=== PATIENT | female | born 1980 | race Caucasian/White ===

== ENCOUNTER 2019-12-06 14:37 | Outpatient (REF) | payer OTHER, SELFPAY ==
--- NOTE | 2019-12-06 15:20 | MHC.AU.P13 ---
Hearing Instrument Follow-Up- Binaural Date of Visit: 12/06/19 Follow-Up Summary: Patient was previously fit with a right-sided Phonak Audeo M50-13T on 04/14/2019 to address moderate to profound sensorineural hearing loss in her right ear. At the time, word discrimination was 84%. She was doing well with the hearing aid, until her hearing changed. Recently, patient began to experience increased hearing difficulty in her right ear and was not receiving any benefit from her hearing aid. She followed up with ENT, Dr. Del Cid, on 11/14/2019. She was found to have no remaining measurable thresholds and no word discrimination ability in the right ear. Her current hearing aid will no longer work for her right ear. She will require a CROS system, and received medical clearance from ENT, Dr. Del Cid. Her current hearing aid is also not compatible with a CROS product; therefore, she will need a new pair of instruments. An authorization will be sent to patient's insurance. If approved, a right-sided Phonak CROS B-312 and a left-sided Phonak Audeo B50-312 in color Sand Beige with size 1S receivers and domes. Recommendations: Recommendations: Hearing aid fitting will be scheduled pending approval from insurance and arrival of materials. Diagnosis Code(s): Primary Diagnosis: H90.A21 SNHL, Unilateral Right Ear, W/Restricted Contralateral Hearing Secondary Diagnosis: N/A Services Performed: Hearing Aid Evaluation and Earmold: Hearing Aid Evaluation- Binaural Signature: Provider: Ino Prado, [facility]
== END 2019-12-06 14:38 | disposition home or self-care (01) ==
LOC: HO.HAP 14:37
PROVIDERS: Visit Provider Internal Medicine
DX: Z46.1 Encounter for fitting and adjustment of hearing aid (principal)
CPT/HCPCS: 92591

== ENCOUNTER 2019-12-28 13:53 | Outpatient (REF) | payer OTHER, SELFPAY | END 2019-12-28 13:54 | disposition home or self-care (01) | LOC: HO.HMGCLDS 13:53 | PROVIDERS: PCP Internal Medicine; Visit Provider Internal Medicine | DX: Z20.828 Contact with and (suspected) exposure to other viral communicable diseases (principal) | CPT/HCPCS: C9803; U0003 ==

== ENCOUNTER 2020-02-01 13:26 | Outpatient (REF) | payer OTHER, SELFPAY | END 2020-02-01 13:27 | disposition home or self-care (01) | LOC: HO.HMGCLDS 13:26 | PROVIDERS: PCP Internal Medicine; Visit Provider Internal Medicine | DX: Z20.828 Contact with and (suspected) exposure to other viral communicable diseases (principal) | CPT/HCPCS: C9803; U0003 ==

== ENCOUNTER 2020-05-15 09:01 | Outpatient (REF) | payer OTHER, SELFPAY ==
--- NOTE | 2020-05-15 10:56 | MHC.AU.HFA ---
Hearing Instrument Fitting- Adult- Binaural Date of Visit: 05/15/20 Hearing Instruments Dispensed: Right Ear: Dust Puller: [employer] Model: CROS B-312 Serial Number: [id number] Repair Warranty: 07/29/2023 Loss and Damage Warranty: 07/29/2023 Battery Size: 312 Color: Sand Beige Weave Room Supervisor: 0xS Type of Dome: Small Open Left Ear: Dust Puller: Phonak Model: Audeo B50-312 Serial Number: [id number] RepairWarranty: 07/29/2023 Loss and Damage Warranty: 07/29/2023 Battery Size: 312 Color: Sand Beige Weave Room Supervisor: 0xS Type of Dome: Small Open Type of Wax Guard: CeruStop Summary of Fitting: Feedback infrastructure project manager run. Target set at 100%. CROS balance set to default. Volume control activated. Patient reported the sound and fit were comfortable. Hearing aid care and maintenance were discussed and practiced. Recommendations: Recommendations: Patient will call if follow-up is needed. Diagnosis Code(s): Primary Diagnosis: H90.A21 SNHL, Unilateral Right Ear, W/Restricted Contralateral Hearing Signature: Provider: Ino Prado, [facility]
== END 2020-05-15 09:02 | disposition home or self-care (01) ==
LOC: HO.HAP 09:01
PROVIDERS: PCP Internal Medicine; Visit Provider Otolaryngology
DX: Z46.1 Encounter for fitting and adjustment of hearing aid (principal); H90.A21 Sensorineural hearing loss, unilateral, right ear, with restricted hearing on the contralateral side
CPT/HCPCS: V5011; V5211; V5221; V5240; V5266

== ENCOUNTER 2024-01-19 16:12 | Outpatient (REF) | payer OTHER, SELFPAY ==
--- NOTE | 2024-01-19 16:46 | MHC.AU.HA3 ---
Hearing Instrument Follow-Up- Binaural Date of Visit: 01/19/24 Right Ear: Model Cristóbal, Color, Serial Number: [id number] Senior Insight Manager Repair Warranty: 07/29/2023 Senior Insight Manager Loss and Damage Warranty: 07/29/2023 [facility] Service Plan: Battery Size: 312 Legal Manager/Slim Tube: 0xS Earmold/Dome/CShell/SlimTip:sm open Type of Wax Guard: cerustop Dispensed By: [facility] Date of Fittin05/15/20 Left Ear: Model Cristóbal, Color, Serial Number: [id number] Senior Insight Manager Repair Warranty: 07/29/2023 Senior Insight Manager Loss and Damage Warranty: 07/29/2023 [facility] Service Plan: sm open Battery Size: 312 Legal Manager/Slim Tube: 0xS Earmold/Dome/CShell/SlimTip: sm open Type of Wax Guard: CeruStop Dispensed By: [facility] Date of Fittin05/15/20 Follow-Up Summary: Here with hearing aid problem. Accompanied by and son. Last here in 2020 for fitting. Reports hearing aids have always caused a headache. Feels the amplification is too loud. Reports she tried wearing them consistently but has not consistently worn regularly for some time. Reports recent trip to ER for popping ear noise in left ear, very loud and bothersome, denies otalgia but notes neck pain. Advised ENT consult, pt reports this is scheduled for next week. Otoscopy clear Au. Cleaned and checked aid and cros, replaced domes and wax guards. Listening check positive. Checked settings. Data logging shows 0 hours of wear. Decreased gain from %100 to %80. Advised pt that gain was reduced, recommended trying to get used to them again, suggested not wearing the aids until resolution of her current concern for the left ear. Return as needed. Recommendations: Recommendations: Hearing instrument follow-up or maintenance as needed. Diagnosis Code(s): Primary Diagnosis: H90.3 Bilateral Sensorineural Hearing Loss Signature: Provider: Link Waters, [facility]
== END 2024-01-19 16:13 | disposition home or self-care (01) ==
LOC: HO.HAP 16:12
PROVIDERS: Visit Provider Otolaryngology
DX: Z46.1 Encounter for fitting and adjustment of hearing aid (principal); H90.3 Sensorineural hearing loss, bilateral
CPT/HCPCS: 92593; 99499